=== PATIENT | male | born 1930 | race Caucasian/White ===

== ENCOUNTER 2021-02-10 09:52 | Outpatient (CLI) | payer OTHER ==
[2021-02-10] MEDS ORDERED: BARIUM SULFATE 135 ML SUSP.RECON (E-Z-HD) PO ONE (10:08)
== END 2021-02-10 20:10 | disposition home or self-care (01) ==
LOC: SRD 09:52
PROVIDERS: ATTEND Internal Medicine Cardiovascular Disease
DX: R13.10 Dysphagia, unspecified (principal)
CPT/HCPCS: 74220-TC